=== PATIENT | male | born 1995 ===

== ENCOUNTER 2018-10-20 08:53 | Emergency (ER) | payer MEDICAID ==
[2018-10-20 09:18] VITALS: BP 108/69; PULSE 105; RESP 20; O2SAT 96
--- NOTE | 2018-10-20 09:38 | C.PDOC ---
History Of Present Illness Patient reports flu like symptoms for 3 days- fever, cough, sore throat. Denies any recent travel or sick contacts. Time Seen by Provider: 10/20/18 09:02 Chief Complaint (Nursing): ENT Problem Past Medical History Reviewed: Historical Data Vital Signs: Last Vital Signs Temp 102.9 F H 10/20/18 09:12 Pulse 105 H 10/20/18 09:12 Resp 20 10/20/18 09:12 BP 108/69 10/20/18 09:12 Pulse Ox 96 10/20/18 09:12 CHRISTOPHER Report Viewed: Yes - Medical History PMH: No Chronic Diseases Surgical History: No Surg Hx Family History: States: Unknown Family Hx - Social History Hx Alcohol Use: Yes Hx Substance Use: No - Immunization History Hx Tetanus Toxoid Vaccination: No Hx Influenza Vaccination: No Review Of Systems Except As Marked, All Systems Reviewed And Found Negative. Constitutional: Positive for: Fever ENT: Positive for: Nose Congestion, Throat Pain. Negative for: Ear Pain Cardiovascular: Negative for: Chest Pain Respiratory: Positive for: Cough Gastrointestinal: Negative for: Nausea, Vomiting, Abdominal Pain, Diarrhea Skin: Negative for: Rash Physical Exam - Physical Exam Appears: Non-toxic, No Acute Distress Skin: Normal Color, Warm, Dry Oral Mucosa: Moist Tongue: Normal Appearing Lips: Normal Appearing Throat: Erythema Neck: Normal Chest: Symmetrical Cardiovascular: Rhythm Regular Respiratory: Normal Breath Sounds Gastrointestinal/Abdominal: Normal Exam Extremity: No Deformity, No Swelling Neurological/Psych: Oriented x3 Gait: Steady ED Course And Treatment O2 Sat by Pulse Oximetry: 96 Medical Decision Making Medical Decision Making: Flu swab and rapid strep done, both negative. Ibuprofen PO given for fever/pain. Advised continuing supportive care at home- tylenol/motrin as needed, fluids, rest. Return to the ED for any new or worsening symptoms. Disposition - Disposition Disposition: HOME/ ROUTINE Disposition Time: 10:11 Condition: STABLE Additional Instructions: BROOK SANTOS, thank you for letting us take care of you today. Your provider was Holly Kaur MD and you were treated for THROAT PAIN. The emergency medical care you received today was directed at your acute symptoms. If you were prescribed any medication, please fill it and take as directed. It may take several days for your symptoms to resolve. Return to the Emergency Department if your symptoms worsen, do not improve, or if you have any other problems. Please contact your doctor or call one of the physicians/clinics you have been referred to that are listed on the Patient Visit Information form that is included in your discharge packet. Bring any paperwork you were given at discharge with you along with any medications you are taking to your follow up visit. Our treatment cannot replace ongoing medical care by a primary care provider outside of the emergency department. Thank you for allowing the [facility] team to be part of your care today. If you had an X-Ray or CT scan: A Radiologist will review the ED reading if any change in treatment is needed we will contact you. If you had a blood, urine, or wound culture: It will take several days for the results, if any change in treatment is needed we will contact you. If you had an STI test: It will take 48 hours for the results. Please call after 1 week if you have not heard back. Instructions: Viral Syndrome (DC) Forms: [employer] (Italian) Print Language: LIBYAN - Clinical Impression Clinical Impression: Viral syndrome
[2018-10-20 10:10] LABS: INFLUENZA A B NEGATIVE FOR FLU A/B (NEGATIVE)
[2018-10-20 10:19] VITALS: TEMP 100.6
== END 2018-10-20 10:19 | disposition home or self-care (01) ==
LOC: C.ER 08:53
DX: B34.9 Viral infection, unspecified (principal)